=== PATIENT | female | born 1995 | race Caucasian/White ===

== ENCOUNTER → 2018-02-04 13:44 | Outpatient (REF) | payer OTHER, SELFPAY ==
--- NOTE | 2018-02-04 13:00 | PAPFT_PTH ---
PATIENT: Ninoska Stephens LOC: [facility] U#:[id number] AGE/SX: 29/F ROOM: RE02/04/[address]: JIMMY Goncalves : 1995 BED: DIS: SPEC #: [id number] RECD: 02/04/18 17:09 STATUS: BERTHA CARCAMO #: [id number] CHIRSTINA: 02/04/18 13:[address]: Nneka Maldonado DEPT: [facility] Cytology RECD BY: Cindi José ENTERED: 02/04/18 17:10 SP TYPE: PAPFT OTHR DR: Hannah Potter MD, DC Tissues: 1 - CX/ENDOCX FOR PAP SMEARS Procedures: PAP THIN PREP/[facility] Screening HPV DNA PROBE Comments: [id number]
[2018-02-07 15:17] LABS: Chlamydia Result Negative; GC Result Negative
== END ==
LOC: LBN 13:44
PROVIDERS: PCP Family Medicine; Visit Provider Nurse Practitioner Family
DX: R30.0 Dysuria (principal); Z11.3 Encounter for screening for infections with a predominantly sexual mode of transmission; Z12.4 Encounter for screening for malignant neoplasm of cervix
CPT/HCPCS: 87491; 87591; 88142; 87086; 87624

== ENCOUNTER 2018-09-28 14:31 | Outpatient (CLI) | payer OTHER, SELFPAY ==
[2018-09-28 15:20] LABS: HCT 44.3 % (36.0-46.0); HGB 14.8 g/dL (12.0-15.5); Mean Corp. HGB Concentration 33.4 g/dL (32.0-36.0); Mean Corpuscular Hemoglobin 30.2 pg (27.0-33.0); Mean Corpuscular Volume 90.4 fL (80-95); Mean Platelet Volume 10.1 fL (8.0-11.0); Platelet Count 298 x1000/uL (130-400); RBC Distribution Width 13.6 % (11.7-14.6); White Blood Cell Count 8.75 k/cumm (4.4-10.8)
[2018-09-28 16:26] LABS: ALT 24 U/L (12-78); AST 17 U/L (15-37); Albumin 4.2 g/dL (3.4-5.0); Alkaline Phosphatase 76 U/L (46-116); Anion Gap 13.7 mmol/L (3-11); BUN 18 mg/dL (7-18); Bilirubin, Total 0.3 mg/dL (0.2-1.0); CO2 22.3 mmol/L (21.0-32.0); CREATININE 0.99 mg/dL (0.55-1.02); Calcium 9.8 mg/dL (8.5-10.1); Chloride 106 mmol/L (98-107); Cholesterol 144 mg/dL (50-200); Glucose 80 mg/dL (70-100); HDL Cholesterol 66 mg/dL (40-60); LDL CHOLESTEROL 69 mg/dL (<100); Potassium 3.9 mmol/L (3.5-5.1); Sodium 142 mmol/L (136-145); Total Protein 7.8 g/dL (6.4-8.2); Triglyceride 43 mg/dL (30-150)
[2018-10-01 07:32] LABS: Topiramate 8.7 mcg/mL
== END 2018-09-28 14:51 ==
PROVIDERS: PCP Family Medicine; Visit Provider Family Medicine
DX: D64.9 Anemia, unspecified (principal); G43.909 Migraine, unspecified, not intractable, without status migrainosus; Z51.81 Encounter for therapeutic drug level monitoring
CPT/HCPCS: 36415; 80053; 80061; 83721; 85027; 80201

== ENCOUNTER 2019-02-07 14:28 | Outpatient (REF) | payer OTHER, SELFPAY ==
--- NOTE | 2019-02-07 13:30 | PAPFT_PTH ---
PATIENT: Ninoska Stephens LOC: [facility] U#:[id number] AGE/SX: 23/F ROOM: RE02/07/[address]: JIMMY Goncalves : 1995 BED: DIS: 02/07/2019 SPEC #: [id number] RECD: 02/07/19 17:49 STATUS: BERTHA RERadha #: [id number] CHRISTINA: 02/07/19 13:[address]: Nneka Maldonado DEPT: [facility] Cytology RECD BY: Cindi José ENTERED: 02/07/19 17:49 SP TYPE: PAPFT OTHR DR: Hannah Potter MD, DC Tissues: 1 - CX/ENDOCX FOR PAP SMEARS Procedures: PAP THIN PREP/[facility] Screening Comments: [id number]
== END 2019-02-07 14:48 ==
LOC: LBN 14:28
PROVIDERS: PCP Family Medicine; Visit Provider Nurse Practitioner Family
DX: Z12.4 Encounter for screening for malignant neoplasm of cervix (principal)
CPT/HCPCS: 88142

== ENCOUNTER 2019-07-18 14:13 | Outpatient (CLI) | payer OTHER, SELFPAY ==
[2019-07-18 14:46] LABS: HCT 45.6 % (36.0-46.0); HGB 15.3 g/dL (12.0-15.5); Mean Corp. HGB Concentration 33.6 g/dL (32.0-36.0); Mean Corpuscular Hemoglobin 30.4 pg (27.0-33.0); Mean Corpuscular Volume 90.7 fL (80-95); Mean Platelet Volume 9.8 fL (8.0-11.0); Platelet Count 357 x1000/uL (130-400); RBC 5.03 m/cumm (4.00-5.20); RBC Distribution Width 12.7 % (11.7-14.6); White Blood Cell Count 8.51 k/cumm (4.4-10.8)
[2019-07-18 16:09] LABS: ALT 21 U/L (14-59); AST 18 U/L (15-37); Albumin 4.3 g/dL (3.4-5.0); Alkaline Phosphatase 72 U/L (46-116); Anion Gap 9.3 mmol/L (3-11); BUN 17 mg/dL (7-18); Bilirubin, Total 0.3 mg/dL (0.2-1.0); CO2 25.7 mmol/L (21.0-32.0); CREATININE 0.98 mg/dL (0.55-1.02); Calcium 9.6 mg/dL (8.5-10.1); Chloride 107 mmol/L (98-107); Glucose 96 mg/dL (74-106); Magnesium 2.1 mg/dL (1.8-2.4); Potassium 4.1 mmol/L (3.5-5.1); Sodium 142 mmol/L (136-145); TSH (W/Ref FT4) 2.65 uIU/mL (0.36-3.74); Total Protein 7.8 g/dL (6.4-8.2)
== END 2019-07-18 14:33 ==
PROVIDERS: PCP Family Medicine; Visit Provider Family Medicine
DX: G43.709 Chronic migraine without aura, not intractable, without status migrainosus (principal)
CPT/HCPCS: 36415; 80053; 85027; 83735; 84443

== ENCOUNTER 2019-12-05 12:45 | Outpatient (REF) | payer OTHER, SELFPAY ==
[2019-12-06 00:06] LABS: COVID-19 RT-PCR UVMMC Result Negative (Negative)
[2019-12-06 16:50] LABS: Chlamydia Result Negative (Negative); GC Result Negative (Negative)
== END 2019-12-05 13:05 ==
LOC: NCHCN 12:45
PROVIDERS: Obstetrics & Gynecology; PCP Family Medicine; Visit Provider Family Medicine
DX: N89.8 Other specified noninflammatory disorders of vagina (principal); Z11.3 Encounter for screening for infections with a predominantly sexual mode of transmission; Z20.828 Contact with and (suspected) exposure to other viral communicable diseases
CPT/HCPCS: 87491; 87591; U0003; 87480; 87510; 87660

== ENCOUNTER 2020-02-07 17:11 | Emergency (ER) | payer OTHER, SELFPAY ==
[2020-02-07 17:16] VITALS: BP 116/72; PULSE 86; TEMP 36.9; O2SAT 100
--- NOTE | 2020-02-07 18:10 | DI.RAD_ITS ---
EXAM: XR FEMUR RT CLINICAL HISTORY: puncture injury yesterday, pulled .5 inch wood fb. TECHNIQUE: 2D digital imaging was performed. COMPARISON: No exams were available for comparison FINDINGS: BONES: No acute fracture is present. No bony destructive lesion is seen. Visualized portion of knee a nd hip joints are unremarkable. SOFT TISSUE: Normal. No radiopaque foreign body. IMPRESSION: Unremarkable radiographs of the right femur. DATA REPOSITORY: RADIATION DOSE DELIVERED:
--- NOTE | 2020-02-07 18:13 | ED.GENADUL_ITS ---
Discharge Plan Disposition Patient Disposition: HOME Condition: Stable Discharge Details Chief Complaint: RashLesion Clinical Impression: Leg wound, right Primary Care Provider: Hannah Potter ED Provider: John Richards Home Meds and New Rx's Prescriptions: New cephalexin [Keflex] 500 mg capsule 500 mg PO QID 10 Days Qty: 40 RF: 0 Continued biotin 10,000 mcg capsule See Rx Instructions PO DAILY RF: 0 multivitamin [Daily Multi-Vitamin] Tablet 1 tab PO DAILY RF: 0 ferrous fumarate 89 mg (29 mg iron) tablet 89 mg PO DAILY RF: 0 magnesium oxide 500 mg capsule 500 mg PO DAILY RF: 0 prochlorperazine maleate 5 mg tablet 5 mg PO TID PRN (Reason: headache) Qty: 30 RF: 1 Complete [place] 700-1,500 mg-mg capsule 1 cap PO DAILY RF: 0 naproxen sodium 550 MG tablet 550 mg PO BID PRNRF: 0 Mirena 1 EACH intrauterine device 1 ea Intrauterine ONCE Qty: 1 RF: 0 Emgality Pen 120 mg/mL pen injector 120 mg SC QMONTH Qty: 1 RF: 5 topiramate 100 mg tablet 100 mg PO BID Qty: 180 RF: 7 valerian root 500 mg Capsule 500 mg PO QHS PRNRF: 0 Collagen Plus Vitamin C 125-740 mg Capsule 1 cap PO DAILY RF: 0 Discharge Instructions Instructions: Acute Wound Care (ED) Additional Instructions: At this time I see no obvious foreign body. I do appreciate mild local irritat ion but difficult to say that this is a true infection. As we discussed I recommend keeping the area clean and dry, using [id number] topical antibiotics and a wicking salve as directed. Warm moist compresses every 2 hours for 20 minutes. Please watch for new or worsening symptoms and return to the ER for any concerns. I will provide you with a prescription of Keflex, an antibiotic to take if your symptoms worsen at all. Otherwise I recommend contacting your primary care provider tomorrow for prompt outpatient reevaluation. Discharge Data Discharge Date/Time-TO BE ENTERED AT DEPARTURE: 02/07/20 18:26 Medical Decision Making 24-year-old female presents after rubbing up against some ragweed yesterday, noticing a foreign body today and was able to remove it herself. She questions if there may be additional foreign body present. She denies fever, numbness, tingling, weakness. She reports that the discomfort and the redness is already decreasing since she has remove the foreign body. Clinically this appears to be more localized irritation than true cellulitis. I appreciate no obvious foreign body. Discussed options. She is open to obtain x-ray to evaluate for any potential opaque foreign bodies with the understanding that a small subtle foreign body could certainly easily be missed on an x-ray. X-ray unremarkable as read by virtual radiology. Discussed treatment options. She will use [id number] antibiotic ointment, warm soaks and compresses, a wicking salve. I will provide a prescription for Keflex if she develops fever or the erythema begins to spread. She is comfortable this plan and has no additional questions or concerns. Medical Records Medical records reviewed: Yes I reviewed the patient's medical records. HPI General Mode of arrival: ambulatory . Date/Time Provider Initiated Documentation: 02/07/20 17:16 . Limitations to Documentation: no limitations . Information obtained by: patient . HPI Narrative: Patient is a 24-year-old female who reports a history of migraines, presenting to the ER today for right upper leg injury. She reports yesterday she was gardening, brushed up against some ragweed and noticed a small injury. Today the area became progressively red, swollen, painful, so she pulled the scab off and was able to remove a nearly half inch foreign body from her skin. She reports that the area does feel significantly improved with the foreign body removed but she is concerned that there is additional foreign body. She reports that her tetanus status is up-to-date. She denies fever, numbness, tingling, weakness. She has no additional questions or concerns at this time Related Data Home Medications Medication Instructions Recorded Confirmed naproxen sodium 550 mg PO BID PRN 06/12/16 02/07/20 Mirena 1 ea INTRAUTERINE ONCE #1 implant 02/04/18 02/07/20 ferrous fumarate 89 mg (29 mg 89 mg PO DAILY tab 02/07/19 02/07/20 iron) tablet magnesium oxide 500 mg capsule 500 mg PO DAILY 02/07/19 02/07/20 multivitamin 1 tab PO DAILY 02/07/19 02/07/20 biotin 10,000 mcg capsule See Rx Instructions PO DAILY cap 03/21/19 02/07/20 prochlorperazine maleate 5 mg 5 mg PO TID PRN #30 tab 07/25/19 02/07/20 tablet galcanezumab-gnlm 120 mg/mL 120 mg SC QMONTH #1 ml 08/30/19 02/07/20 subcutaneous pen injector topiramate 100 mg tablet 100 mg PO BID #180 tab-cap 10/19/19 02/07/20 omega 3,5,6,7,9 combination no.1 1 cap PO DAILY 12/05/19 02/07/20 700 mg-salmon oil 1,500 mg capsule Collagen Plus Vitamin C 1 cap PO DAILY 02/07/20 02/07/20 cephalexin [Keflex] 500 mg PO QID 10 Days #40 cap 02/07/20 valerian root 500 mg PO QHS PRN 02/07/20 02/07/20 Previous Rx's Medication Instructions Recorded prochlorperazine maleate 5 mg 5 mg PO TID PRN #30 tab 07/25/19 tablet galcanezumab-gnlm 120 mg/mL 120 mg SC QMONTH #1 ml 08/30/19 subcutaneous pen injector topiramate 100 mg tablet 100 mg PO BID #180 tab-cap 10/19/19 cephalexin [Keflex] 500 mg PO QID 10 Days #40 cap 02/07/20 Allergies Allergy/AdvReac Type Severity Reaction Status Date / Time No Known Allergies Allergy Verified 12/05/19 12:52 General Stated Complaint: RashLesion YISEL: 4 Review of Systems Constitutional Constitutional: Denies fever(s) and Denies weakness Musculoskeletal Musculoskeletal: Denies arthralgias, Denies numbness and Denies tingling Integumentary/Breasts Skin/Breast: Reports erythema Neurologic Neurologic: Denies numbness, Denies tingling and Denies weakness [facility] Medical History Acne, unspecified (Resolved 05/12/16) Bacterial vaginosis Encounter for insertion of mirena IUD (Resolved 06/06/15) 06/06/15 IUD surveillance (Chronic 08/26/15) Migraine headache without aura (Acute) Papanicolaou smear of vagina with low grade squamous intraepithelial lesion (LGSIL) (Resolved 10/21/15) Smoker (Chronic 05/08/14) Family History Mother No problems noted. Father No problems noted. Grandfather Essential hypertension Stroke Social History Smoking/Tobacco Use Status: Current every day Tobacco Type: cigarettes Alcohol Intake: current Alcohol Intake frequency: a few times a month Drug use: Never Substance use type: does not use Household members: significant other Housing: house Number of Children: 0 current occupation: [employer] What is your relationship status?: living with partner Panel score (0-1 are the most socially isolated patients): 1 Seatbelt use: never Do you feel safe at home: Yes Do you feel safe in your relationship?: Yes Female Reproductive History Menstrual control method: progestin IUCD History History 0 Para Hx # Term Pregnancies Multiple births Hx # Pregnancies Ectopic pregnancies AB induced Hx Number of Living Children AB spontaneous Exam Const General: cooperative, healthy appearing, comfortable and no acute distress Orientation: alert and awake HENMT Head: normal to inspection, normocephalic and atraumatic Mouth: moist mucous membranes Eyes Conjunctivae: conjunctivae normal Neck Neck: normal visual inspection, trachea midline and supple Resp Effort & Inspection: normal respiratory effort and able to speak in complete sentences Cardio Rate: regular rate Rhythm: regular rhythm Skin General skin exam: no rashes or lesions noted Neuro General: patient alert, patient awake, moves all extremities and no focal motor deficits Gait: normal gait Motor: muscle tone normal throughout Sensory Exam: no sensory deficits noted Extrem Upper/lower leg/hip images: 1. There is a nickel sized area of slightly tender, warm, macular erythema. Centrally there is a small open wound without any obvious foreign body or drainage. Upon palpation I do not appreciate any induration, fluctuance, or foreign body. Neuro, vascular, tendon intact Other: Bilateral lower extremities with multiple abrasions. Psych Appearance: grossly normal Mental Status: mental status grossly normal Course Vital Signs Vital signs: Vital Signs Temperature 36.9 C 02/07/20 17:16 Pulse 86 02/07/20 17:16 Blood Pressure 116/72 02/07/20 17:16 Pulse Oximetry 100 02/07/20 17:16 Temperature 36.9 C 02/07/20 17:16 Temperature Source Temporal Artery Scan 02/07/20 17:16 Pulse 86 02/07/20 17:16 Respiratory Effort Non-Labored 02/07/20 17:20 Blood Pressure 116/72 02/07/20 17:16 Blood Pressure Position Sitting 02/07/20 17:16 Pulse Oximetry 100 02/07/20 17:16 Oxygen Delivery Method Room Air 02/07/20 17:16 Oxygen Flow Rate 0 02/07/20 17:16 Pain Level 1 02/07/20 17:16
--- NOTE | 2020-02-07 18:15 | DI.VRAD_ITS ---
PROCEDURE INFORMATION: Exam: XR Right Femur Exam date and time: 02/07/2020 6:07 PM Age: 24 years old Clinical indication: Other: Puncture injury yesterday pulled .5 inch wood fb TECHNIQUE: Imaging protocol: XR Right femur. Views: 2 views. COMPARISON: No relevant prior studies available. FINDINGS: Bones/joints: Unremarkable. No acute fracture. Soft tissues: Unremarkable. IMPRESSION: No acute findings. Dictated and Authenticated by: Georgia Lewis MD. Ordering:TONEY Lopez MD
== END 2020-02-07 18:26 | disposition home or self-care (01) ==
PROVIDERS: Emergency Provider Physician Assistant; PCP Family Medicine
DX: S70.311A Abrasion, right thigh, initial encounter (principal); W60.XXXA Contact with nonvenomous plant thorns and spines and sharp leaves, initial encounter
CPT/HCPCS: 73552; 99283

== ENCOUNTER 2020-02-22 14:38 | Outpatient (REF) | payer OTHER, SELFPAY ==
--- NOTE | 2020-02-22 14:00 | PAPFT_PTH ---
PATIENT: Ninoska Stephens LOC: [facility] U#:[id number] AGE/SX: 24/F ROOM: RE02/22/[address]: JIMMY Goncalves : 1995 BED: DIS: 02/22/2020 SPEC #: [id number] RECD: 02/22/20 17:59 STATUS: BERTHA RERadha #: [id number] CHRISTINA: 02/22/20 14:[address]: Nneka Maldonado DEPT: [facility] Cytology RECD BY: Cindi José ENTERED: 02/22/20 18:01 SP TYPE: PAPFT OTHR DR: Hannah Potter MD, DC Tissues: 1 - CX/ENDOCX FOR PAP SMEARS Procedures: PAP THIN PREP/[facility] Screening Comments: [id number]
== END 2020-02-22 14:58 ==
LOC: LBN 14:38
PROVIDERS: PCP Family Medicine; Visit Provider Nurse Practitioner Family
DX: Z12.4 Encounter for screening for malignant neoplasm of cervix (principal)
CPT/HCPCS: 88142

== ENCOUNTER 2020-05-07 15:40 | Outpatient (REF) | payer OTHER, SELFPAY ==
[2020-05-11 14:55] LABS: Patient Race White; SARS-CoV-2 RNA Undetected (Undetected); SARS-CoV-2 Specimen Source Nasal
== END 2020-05-07 16:00 ==
LOC: NCHCN 15:40
PROVIDERS: PCP Family Medicine; Visit Provider Nurse Practitioner Family
DX: Z11.59 Encounter for screening for other viral diseases (principal)
CPT/HCPCS: U0003

== ENCOUNTER 2020-10-29 02:17 | Outpatient (CLI) | payer OTHER, SELFPAY ==
[2020-10-29 07:33] LABS: HCT 47.8 % (36.0-46.0); HGB 15.7 g/dL (11.2-15.7); MCH 30.2 pg (27.0-33.0); MCHC 32.8 % (32.0-36.0); MCV 91.9 fL (80-95); Platelet Count 326 10^3/uL (130-400); RDW-SD 41.3 fL; WBC 7.41 10^3/uL (4.4-10.8)
[2020-10-29 08:23] LABS: ALT 24 U/L (14-59); AST 15 U/L (15-37); Albumin 4.5 g/dL (3.4-5.0); Alkaline Phosphatase 94 U/L (46-116); BUN 21 mg/dL (7-18); Bilirubin, Total 0.3 mg/dL (0.2-1.0); CO2 26.6 mmol/L (21.0-32.0); CREATININE 1.2 mg/dL (0.55-1.02); Calcium 9.5 mg/dL (8.5-10.1); Glucose 88 mg/dL (74-106)
[2020-10-29 08:26] LABS: Anion Gap 8.4 mmol/L (3-11); Chloride 106 mmol/L (98-107); Sodium 141 mmol/L (136-145)
[2020-11-02 08:10] LABS: Topiramate 7.9 mcg/mL
== END 2020-10-29 02:18 | disposition home or self-care (01) ==
LOC: LBO 02:18
PROVIDERS: PCP Family Medicine; Visit Provider Family Medicine
DX: G43.009 Migraine without aura, not intractable, without status migrainosus (principal); Z51.81 Encounter for therapeutic drug level monitoring; Z79.899 Other long term (current) drug therapy
CPT/HCPCS: 36415; 80053; 85027; 80201

== ENCOUNTER 2021-11-17 10:54 | Outpatient (REF) | payer OTHER, SELFPAY ==
--- NOTE | 2021-11-17 09:30 | PAPFT_PTH ---
PATIENT: Ninoska Stephens LOC: [facility] U#:[id number] AGE/SX: 26/F ROOM: RE11/17/[address]: JIMMY Goncalves : 1995 BED: DIS: 11/17/2021 SPEC #: [id number] RECD: 11/17/21 13:01 STATUS: BERTHA RERadha #: [id number] CHRISTINA: 11/17/21 09:[address]: Nneka Maldonado DEPT: [facility] Cytology RECD BY: Cindi José ENTERED: 11/17/21 13:02 SP TYPE: PAPFT OTHR DR: Hannah Potter MD, DC Tissues: 1 - CX/ENDOCX FOR PAP SMEARS Procedures: PAP THIN PREP/[facility] Screening Comments: [id number]
[2021-11-18 15:09] LABS: Chlamydia Result Negative (Negative); GC Result Negative (Negative)
== END 2021-11-17 10:55 | disposition home or self-care (01) ==
LOC: LBN 10:54
PROVIDERS: PCP Family Medicine; Visit Provider Nurse Practitioner Family
DX: Z11.3 Encounter for screening for infections with a predominantly sexual mode of transmission (principal); Z12.4 Encounter for screening for malignant neoplasm of cervix
CPT/HCPCS: 87491; 87591; 88142

== ENCOUNTER 2022-03-24 15:21 | Emergency (ER) | payer OTHER, SELFPAY ==
[2022-03-24 15:25] VITALS: BP 120/79; PULSE 103; RESP 18; TEMP 36.6; O2SAT 100
--- NOTE | 2022-03-24 15:45 | DI.US_ITS ---
Exam(s) US ABDOMEN LIMITED EXAM: US ABDOMEN LIMITED CLINICAL HISTORY: RUQ pain + murphys sign TECHNIQUE: Ultrasound abdomen performed using standard protocol. COMPARISON: No exams were available for comparison FINDINGS: PANCREAS: Normal where visualized. LIVER: Normal. Hepatopedal flow in the Portal Vein. The liver measures in 12.6 cm length. GALLBLADDER: No evidence of cholelithiasis. No evidence of wall thickening. No pericholecystic fluid identified. BILIARY SYSTEM: Common bile duct measures < 7 mm. No intrahepatic biliary ductal dilation. PAL'S SIGN: Negative. RIGHT KIDNEY: Kidney is normal in size. No evidence of renal calculi. No evidence of hydronephrosis. No renal mass or cyst identified. ASCITES: None seen. IMPRESSION: 1. Normal sonographic appearance of the upper abdomen. 2. Results of this exam have been verbally communicated with provider. DATA REPOSITORY:
--- NOTE | 2022-03-24 16:02 | ED.GENADUL_ITS ---
Discharge Plan Disposition Patient Disposition: HOME Condition: Improving Discharge Details Clinical Impression: Diarrhea Primary Care Provider: Hannah oPtter ED Provider: Krishna Purvis Home Meds and New Rx's Prescriptions: Continued multivitamin [Daily Multi-Vitamin] Tablet 1 tab PO DAILY escitalopram oxalate 10 mg tablet 10 mg PO DAILY Qty: 90 4RF Complete Cosby 700-1,500 mg-mg capsule 1 cap PO DAILY magnesium oxide 400 mg magnesium tablet 400 mg PO DAILY topiramate 100 mg tablet 100 mg PO BID Qty: 180 3RF prochlorperazine maleate 5 mg tablet 5 mg PO TID PRN (Reason: headache) Qty: 30 1RF Rx Instructions: Take 1-2 tablets every 8 hours as needed for headache naproxen sodium 550 MG tablet 550 mg PO BID PRN Label Comments: 05/26/16- [place] [facility] [place] do not use more than 2x/week. aj Mirena 1 EACH intrauterine device 1 ea Intrauterine ONCE Qty: 1 hydroxyzine HCl 25 mg tablet 25 mg PO TID PRN (Reason: itching) Qty: 90 1RF Emgality Pen 120 mg/mL pen injector 120 mg SC QMONTH Qty: 1 11RF Rx Instructions: as a single dose; administer as two 120 mg injections at separate sites valerian root 500 mg Capsule 500 mg PO QHS PRN Discharge Instructions Instructions: Acute Diarrhea (ED) Additional Instructions: At this time there are no worrisome findings on your laboratory or ultrasound work-up. 1 concern is that your escitalopram may be contributing to your symptoms. Please contact your primary care provider to discuss stopping or holding this medication to see if that improves your symptoms. Otherwise if you develop any blood or mucus in your stools or have any significant worsening of symptoms return to the emergency department immediately. Referrals: Hannah Potter MD, [place] [Primary Care Provider] - 5 days (If not improving) Discharge Data Discharge Date/Time-TO BE ENTERED AT DEPARTURE: 03/24/22 18:16 Medical Decision Making Patient presenting to the emergency department for chief complaint of abdominal pain and diarrhea. Patient reports that this started approximately 8 days ago but 4 days ago stool turned yellow and had increasing right upper quadrant belly pain. Patient denies fever chills, bloody diarrhea, mucus in diarrhea, or travel or other associated symptoms. Physical exam is positive for Shearer sign with significant right upper quadrant tenderness otherwise benign exam. We will plan on checking labs and performing ultrasound imaging with consideration of possible CT if needed. Will give IV fluids pending results and patient was offered ketorolac but refused at this time. Review of labs show a completely unremarkable and normal CBC, CMP shows slightly low potassium at 3.2 glucose of 73 protein of 8.3 otherwise again unremarkable, completely normal urine. Patient is not . Ultrasound imaging is also negative. Reassessed patient and patient now has benign abdominal exam. I suspect enteritis with diarrhea but I am not overly concerned at this time for bacterial infectious source. We will perform outpatient stool specimen studies and hold off on any antibiotics. Did further discuss patient's onset of symptoms and she does state that she did start the citalopram the day before she has noticed a change in the color of her stool and the onset of abdominal pain. Did inform her to reach out to her primary care provider to further discuss stopping this medication as this may be causing her symptoms. After discussion of diagnosis and plan of care patient has no further needs, questions, or concerns and states clear understanding to return to the emergency department for any worsening symptoms. This documentation was generated using [employer] dictation system, please disregard any oddities of phrase or misspellings. Imaging Data Radiologic Study: Attestation: I personally reviewed and interpreted this imaging study as follows: Imaging: Ultrasound Radiologist's impression: FINDINGS: PANCREAS: Normal where visualized. LIVER: Normal. Hepatopedal flow in the Portal Vein. The liver measures in 12.6 cm length. GALLBLADDER: No evidence of cholelithiasis. No evidence of wall thickening. No pericholecystic fluid identified. BILIARY SYSTEM: Common bile duct measures < 7 mm. No intrahepatic biliary ductal dilation. SHEARER'S SIGN: Negative. RIGHT KIDNEY: Kidney is normal in size. No evidence of renal calculi. No evidence of hydronephrosis. No renal mass or cyst identified. ASCITES: None seen. IMPRESSION: 1. Normal sonographic appearance of the upper abdomen. 2. Results of this exam have been verbally communicated with provider. Lab Data Lab results reviewed: Yes I reviewed the patient's lab results. HPI General Mode of arrival: ambulatory . Date/Time Provider Initiated Documentation: 03/24/22 15:34 . Limitations to Documentation: no limitations . Information obtained by: patient and RN notes reviewed . History of Present Illness 26 year old F presents to the emergency department with the chief complaint of RUQ pain and diarrhea, described as mild, with intensity rated at 2. Quality is described as aching, and is localized to the abdomen. Patient reports no radiation. Patient started experiencing this day(s) (8) and it has been constant. No relieving factors improve symptom(s), No exacerbating factors reported . Patient notes no other symptoms.. Patient did receive the following treatments prior to arrival, none Related Data Home Medications Medication Instructions Recorded Confirmed naproxen sodium 550 mg tablet 550 mg PO BID PRN 06/12/16 03/25/22 levonorgestrel 20 mcg/24 hours (7 1 ea intrauterine ONCE #1 implant 02/04/18 03/25/22 yrs) 52 mg intrauterine device (Mirena) multivitamin (Daily Multi-Vitamin 1 tab PO DAILY 02/07/19 03/25/22 tablet) omega 3,5,6,7,9 combination no.1 1 cap PO DAILY 12/05/19 03/25/22 700 mg-salmon oil 1,500 mg capsule (Complete Cosby) valerian root 500 mg capsule 500 mg PO QHS PRN 02/07/20 03/25/22 hydroxyzine HCl 25 mg tablet 25 mg PO TID PRN itching #90 tabs 09/01/21 03/25/22 magnesium oxide 400 mg PO DAILY 10/07/21 03/25/22 galcanezumab-gnlm 120 mg/mL 120 mg subcut QMONTH #1 mL 02/18/22 03/25/22 subcutaneous pen injector (Emgality Pen) prochlorperazine maleate 5 mg 5 mg PO TID PRN headache #30 tabs 02/25/22 03/25/22 tablet topiramate 100 mg tablet 100 mg PO BID #180 tab-caps 02/25/22 03/25/22 escitalopram oxalate 10 mg tablet 10 mg PO DAILY #90 tabs 03/19/22 03/25/22 Previous Rx's Medication Instructions Recorded hydroxyzine HCl 25 mg tablet 25 mg PO TID PRN itching #90 tabs 09/01/21 galcanezumab-gnlm 120 mg/mL 120 mg subcut QMONTH #1 mL 02/18/22 subcutaneous pen injector (Emgality Pen) prochlorperazine maleate 5 mg 5 mg PO TID PRN headache #30 tabs 02/25/22 tablet topiramate 100 mg tablet 100 mg PO BID #180 tab-caps 02/25/22 escitalopram oxalate 10 mg tablet 10 mg PO DAILY #90 tabs 03/19/22 Allergies Allergy/AdvReac Type Severity Reaction Status Date / Time diphenhydramine AdvReac Severe facial Verified 03/25/22 13:52 [From Benadryl] skin rash General Stated Complaint: Nausea/Vomit/Diar YISEL: 3 Review of Systems Constitutional Constitutional: Denies chills, Denies fever(s) and Reports poor appetite Cardiovascular Cardiovascular: Denies chest pain and Denies dyspnea Respiratory Respiratory: Denies cough and Denies dyspnea Gastrointestinal Gastrointestinal: Reports as per HPI, Reports abdominal pain, Denies melena, Denies hematochezia, Denies change in bowel habits, Denies constipation, Reports diarrhea, Reports nausea and Denies vomiting Genitourinary Genitourinary: Denies hematuria, Denies urinary incontinence, Denies urinary hesitancy and Denies urinary urgency Integumentary/Breasts Skin/Breast: Denies rash PFSH All Active Problems Diarrhea (Acute) Palpitations (Acute) Nausea (Acute) Anxiety (Chronic) Cerumen impaction (Acute) Dandruff in adult (Acute) Tinea versicolor (Acute) Annual physical exam (Acute) Leg wound, right (Acute) Routine screening for STI (sexually transmitted infection) (Acute) Vaginal irritation (Acute) Urinary frequency (Acute) Migraine headache without aura (Acute) IUD surveillance (Chronic 08/26/15) Smoker (Chronic 05/08/14) Medical History Acne, unspecified (05/12/16) Bacterial vaginosis Encounter for insertion of mirena IUD (06/06/15) 06/06/15 Papanicolaou smear of vagina with low grade squamous intraepithelial lesion (LGSIL) (10/21/15) Family History Mother Alcohol use disorder Depression Essential hypertension Stroke Substance use disorder Father Alcohol use disorder Hypertension Grandfather Essential hypertension Stroke Sister No problems noted. Brother No problems noted. Paternal Grandfather Alcohol use disorder Asthma Hypertension Stroke Paternal Grandmother Cancer Bladder Diabetes Heart disease Social History Smoking/Tobacco Use Status: Current every day Tobacco Type: cigarettes Tobacco: How many years used: 11 Quit status: considering quitting Smoking risk assessment performed?: Yes Alcohol Intake: current Alcohol Intake frequency: a few times a month Alcohol type: beer, wine and hard liquor Drug use: Never Substance use type: does not use Caregiver/Support person: No Household members: significant other Housing: house Number of Children: 0 Communication Needs: None Do you need help understanding health information?: Never current occupation: [employer] Pets and animals: Yes Pets and animals: cat(s) and dog(s) Sexually active: Yes Do you think of yourself as: straight/heterosexual Current gender identity: female What is your relationship status?: living with partner How often do you talk on the phone with friends or family?: once per week How often do you get together with friends or relatives?: once per week Do you belong to any clubs or organized social groups?: no Panel score (0-1 are the most socially isolated patients): 1 What type of physical activity do you participate in: walking and yoga Duration: 45-60 minutes/day Frequency: 5-6 times per week Christin/Jainism: Other Special christin needs: Yes (Mixed Beliefs) Seatbelt use: never Do you feel safe at home: Yes Do you feel safe in your relationship?: Yes Female Reproductive History Menstrual control method: progestin IUCD History History 0 Para Hx # Term Pregnancies Multiple births Hx # Pregnancies Ectopic pregnancies AB induced Hx Number of Living Children AB spontaneous Exam Const General: cooperative Orientation: alert, awake and oriented x3 Resp Effort & Inspection: normal respiratory effort and able to speak in complete sentences Auscultation: clear to auscultation bilaterally Cardio Rate: regular rate Rhythm: regular rhythm Heart Sounds: S1 normal and S2 normal GI Inspection: normal to inspection Palpation: soft, not firm, no guarding, no masses, no pulsatile masses, not rigid, no splenomegaly and tender in the RUQ and Shearer's sign positive; not at McBurney's point, psoas sign negative and Rovsing's sign negative Auscultation: normal bowel sounds Back/Spine/Pelvis Back: no CVA tenderness Neuro General: patient alert, patient awake, patient oriented x3, gait normal and moves all extremities Course Vital Signs Vital signs: Vital Signs Temperature 36.6 C 03/24/22 15:25 Pulse 103 H 03/24/22 15:25 Respiratory Rate 18 03/24/22 15:25 Blood Pressure 120/79 03/24/22 15:25 Pulse Oximetry 100 03/24/22 15:25 Temperature 36.6 C 03/24/22 15:25 Temperature Source Tympanic 03/24/22 15:25 Pulse 103 H 03/24/22 15:25 Respiratory Rate 18 03/24/22 15:25 Respiratory Effort Non-Labored 03/24/22 15:30 Blood Pressure 120/79 03/24/22 15:25 Blood Pressure Position Sitting 03/24/22 15:25 Pulse Oximetry 100 03/24/22 15:25 Oxygen Delivery Method Room Air 03/24/22 15:25 Oxygen Flow Rate 0 03/24/22 15:25 PAWSS Have you Been Recently Intoxicated or Drunk Within the Last 30 days?: No Have you Ever Experienced Previous Episodes of Alcohol Withdrawal?: No Have you ever Experienced Withdrawal Seizures?: No Have you ever Experienced Delirium Tremens(DT)s?: No Have you ever undergone Alcohol Rehabilitation Treatment (i.e, inpt ot outpatient treatment programs)?: No Have you ever Experienced Blackouts?: No Have you ever Combined Alcohol with any other Substance of Abuse during the last 90 days?: No Positive Blood Alcohol level on Presentation? [PCS.BAL]: No Evidence of Increased Autonomic Activity (i.e. HR>120, tremor, sweating, agitation, nausea)?: No Result: 0
[2022-03-24 16:12] LABS: Bilirubin Negative (Negative); Blood Negative (Negative); Clarity Clear (Clear); Glucose Negative (Negative); Ketones Negative (Negative); Leukocyte Esterase Negative (Negative); Nitrite Negative (Negative); Urobilinogen 0.2 EU/dL (Up TO 0.2)
[2022-03-24 16:16] LABS: Abs Immature Grans 0.03 10^3/uL (0.0-0.06); Absolute Basophil Count 0.13 10^3/uL (0.0-0.2); Absolute Eosinophil Count 0.13 10^3/uL (0.0-0.7); Absolute Lymphocyte Count 2.13 10^3/uL (1.2-3.4); Absolute Neutrophil Count 4.92 10^3/uL (1.2-6.7); Basophils % 1.6; Eosinophils % 1.6; HCT 44.9 % (36.0-46.0); HGB 15.2 g/dL (11.2-15.7); Immature Grans % 0.4; Lymphocytes % 26.8; MCH 29.9 pg (27.0-33.0); MCHC 33.9 % (32.0-36.0); MCV 88 fL (80-95); MPV 10.1 fL (8.0-11.0); Monocytes % 7.6; Platelet Count 308 10^3/uL (130-400); RBC 5.09 10^6/uL (3.93-5.22); RDW 12.2 % (11.7-14.6); WBC 7.94 10^3/uL (4.4-10.8)
[2022-03-24 16:30] LABS: Lipase 99 U/L (73-393); Magnesium 2.1 mg/dL (1.8-2.4)
[2022-03-24 16:33] LABS: ALT 21 U/L (14-59); AST 19 U/L (15-37); Albumin 4.5 g/dL (3.4-5.0); Alkaline Phosphatase 76 U/L (46-116); Anion Gap 8.5 mmol/L (3-11); BUN 14 mg/dL (7-18); Bilirubin, Total 0.4 mg/dL (0.2-1.0); CO2 26.5 mmol/L (21.0-32.0); Calcium 9.3 mg/dL (8.5-10.1); Chloride 105 mmol/L (98-107); Estimated GFR 79.19 (mL/min/1.73m2); Glucose 73 mg/dL (74-106); Potassium 3.2 mmol/L (3.5-5.1); Sodium 140 mmol/L (136-145); Total Protein 8.3 g/dL (6.4-8.2)
[2022-03-24 16:40] VITALS: BP 101/76; PULSE 81; RESP 16; TEMP 36.7; O2SAT 98
[2022-03-24] MEDS: Normal Saline 1,000 ML 1000 ML IV (16:41)
[2022-03-24] MEDS: POTASSIUM CHLORIDE 20 MEQ, POTASSIUM CHLORIDE 10 MEQ 30 MEQ PO (16:46)
[2022-03-24 17:37] VITALS: BP 105/67; PULSE 81; RESP 17; TEMP 36.7; O2SAT 98
[2022-03-25 08:23] LABS: C Diff PCR Negative (Negative)
[2022-03-26 11:10] LABS: Campylobacter PCR Negative (Negative); Salmonella PCR Negative (Negative); Shiga Toxin PCR Negative (Negative); Shigella/Enteroinvasive Ecoli Negative (Negative)
== END 2022-03-24 18:16 | disposition home or self-care (01) ==
PROVIDERS: Emergency Provider Nurse Practitioner Family; PCP Family Medicine
DX: R19.7 Diarrhea, unspecified (principal); R10.11 Right upper quadrant pain; R10.811 Right upper quadrant abdominal tenderness; E87.6 Hypokalemia; F17.210 Nicotine dependence, cigarettes, uncomplicated
CPT/HCPCS: 80053; 81025; 83690; 87329; 87493; 87505; 96361; 96374; 99284; 76705; 81003; 82270; 83630; 83735; 85025

== ENCOUNTER 2022-03-27 02:15 | Outpatient (CLI) | payer OTHER, SELFPAY ==
--- NOTE | 2022-03-26 19:55 | W.ED.FU ---
Follow Up Plan: Stool culture positive for Giardia. I called the patient and she is still having symptoms. Plan to initiate treatment with tinidazole. I called the pharmacy and unfortunately they did not have this in stock. Instead we will initiate treatment with metronidazole. 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 I also spoke with CHRISTIAN Albarran at [facility] who saw the patient yesterday and relayed results and plan to initiate treatment with metronidazole.
[2022-03-27 15:25] LABS: HCT 43.5 % (36.0-46.0); HGB 14.9 g/dL (11.2-15.7); MCH 30.2 pg (27.0-33.0); MCHC 34.3 % (32.0-36.0); MCV 88 fL (80-95); Platelet Count 306 10^3/uL (130-400); RBC 4.93 10^6/uL (3.93-5.22); RDW 12.5 % (11.7-14.6); RDW-SD 40.7 fL; WBC 7.35 10^3/uL (4.4-10.8)
[2022-03-27 16:50] LABS: ALT 21 U/L (14-59); AST 19 U/L (15-37); Albumin 4.1 g/dL (3.4-5.0); Alkaline Phosphatase 76 U/L (46-116); Anion Gap 9.8 mmol/L (3-11); BUN 12 mg/dL (7-18); Bilirubin, Total 0.2 mg/dL (0.2-1.0); CO2 25.2 mmol/L (21.0-32.0); CREATININE 1.1 mg/dL (0.55-1.02); Chloride 105 mmol/L (98-107); Estimated GFR 70.63 (mL/min/1.73m2); Glucose 90 mg/dL (74-106); Lipase 92 U/L (73-393); Potassium 3.2 mmol/L (3.5-5.1); Sodium 140 mmol/L (136-145); TSH (W/Ref FT4) 1.45 uIU/mL (0.36-3.74); Total Protein 7.7 g/dL (6.4-8.2)
== END 2022-03-27 02:16 | disposition home or self-care (01) ==
PROVIDERS: PCP Family Medicine; Visit Provider Family Medicine
DX: F41.9 Anxiety disorder, unspecified (principal); R00.2 Palpitations; R10.11 Right upper quadrant pain
CPT/HCPCS: 80053; 83690; 85027; 84443

== ENCOUNTER 2022-05-15 15:23 | Outpatient (REF) | payer OTHER, SELFPAY ==
[2022-05-17 14:49] LABS: Chlamydia Result Negative (Negative); GC Result Negative (Negative)
== END 2022-05-15 15:24 | disposition home or self-care (01) ==
LOC: LBN 15:23
PROVIDERS: PCP Family Medicine; Visit Provider Obstetrics & Gynecology
DX: Z30.430 Encounter for insertion of intrauterine contraceptive device (principal); Z11.3 Encounter for screening for infections with a predominantly sexual mode of transmission
CPT/HCPCS: 87491; 87591

== ENCOUNTER 2022-10-06 15:46 | Outpatient (REF) | payer BC, SELFPAY ==
[2022-10-08 14:43] LABS: Chlamydia Result Negative (Negative); GC Result Negative (Negative)
== END 2022-10-06 15:47 | disposition home or self-care (01) ==
LOC: LBN 15:46
PROVIDERS: PCP Family Medicine; Visit Provider Obstetrics & Gynecology
DX: Z11.3 Encounter for screening for infections with a predominantly sexual mode of transmission (principal)
CPT/HCPCS: 87491; 87591; 87480; 87510; 87660

== ENCOUNTER 2022-10-09 01:28 | Outpatient (CLI) | payer BC, SELFPAY ==
[2022-10-12 10:11] LABS: Syphilis Serology (RPR) Negative (Negative)
[2022-10-12 12:15] LABS: HIV-1/2 Ag & Ab Screen Negative (Negative)
[2022-10-12 12:23] LABS: Hepatitis C Ab w Rflx HCV PCR Negative (Negative)
== END 2022-10-09 01:29 | disposition home or self-care (01) ==
PROVIDERS: PCP Family Medicine; Visit Provider Obstetrics & Gynecology
DX: Z11.3 Encounter for screening for infections with a predominantly sexual mode of transmission (principal); Z11.4 Encounter for screening for human immunodeficiency virus [HIV]; Z11.59 Encounter for screening for other viral diseases
CPT/HCPCS: 36415; 86803; 87389; 86592

== ENCOUNTER 2023-12-20 03:06 | Outpatient (CLI) | payer OTHER, SELFPAY ==
[2023-12-20 15:04] LABS: TSH (W/Ref FT4) 2.99 uIU/mL (0.36-3.74)
== END 2023-12-20 03:07 | disposition home or self-care (01) ==
PROVIDERS: PCP Family Medicine; Visit Provider Nurse Practitioner Women's Health
DX: R63.5 Abnormal weight gain (principal)
CPT/HCPCS: 36415; 84443

== ENCOUNTER 2024-01-05 10:16 | Emergency (ER) | payer OTHER, SELFPAY ==
[2024-01-05 10:32] VITALS: BP 134/83; PULSE 105; RESP 16; TEMP 36.9; O2SAT 98
[2024-01-05] MEDS: Acetaminophen 325 MG TAB 650 MG PO (11:02)
[2024-01-05] MEDS: Ketorolac 15 MG/ML VIAL IM (11:02)
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
[2024-01-05 13:24] VITALS: BP 134/83; PULSE 105; RESP 16; TEMP 36.9; O2SAT 98
== END 2024-01-05 13:29 | disposition home or self-care (01) ==
PROVIDERS: Emergency Provider Emergency Medicine; PCP Family Medicine
DX: S92.315A Nondisplaced fracture of first metatarsal bone, left foot, initial encounter for closed fracture (principal); S92.335A Nondisplaced fracture of third metatarsal bone, left foot, initial encounter for closed fracture; S92.345A Nondisplaced fracture of fourth metatarsal bone, left foot, initial encounter for closed fracture; V86.56XA Driver of dirt bike or motor/cross bike injured in nontraffic accident, initial encounter
CPT/HCPCS: 99283; 73590; 73610; 73630; J1885

== ENCOUNTER 2024-03-29 14:40 | Outpatient (CLI) | payer OTHER, SELFPAY ==
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
== END 2024-03-29 14:41 | disposition home or self-care (01) ==
LOC: DIORS 15:10
PROVIDERS: PCP Family Medicine; Visit Provider Student in an Organized Health Care Education/Training Program
DX: S92.315A Nondisplaced fracture of first metatarsal bone, left foot, initial encounter for closed fracture (principal); X58.XXXA Exposure to other specified factors, initial encounter
CPT/HCPCS: 73630

== ENCOUNTER 2024-05-24 15:17 | Outpatient (CLI) | payer OTHER, SELFPAY ==
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
== END 2024-05-24 15:18 | disposition home or self-care (01) ==
LOC: DIORS 15:18
PROVIDERS: PCP Family Medicine; Visit Provider Student in an Organized Health Care Education/Training Program
DX: S92.315D Nondisplaced fracture of first metatarsal bone, left foot, subsequent encounter for fracture with routine healing (principal); X58.XXXD Exposure to other specified factors, subsequent encounter
CPT/HCPCS: 73630

== ENCOUNTER 2024-06-08 11:40 | Day surgery (SDC) | payer OTHER, SELFPAY ==
[2024-06-08] VITALS (16 sets, daily range): BP systolic 95–125; BP diastolic 37–72; PULSE 68–88; RESP 14–18; TEMP 36.2–36.7; O2SAT 99–100; BMI 27.5
--- NOTE | 2024-06-08 11:52 | PDOC.DSDIS_ITS ---
Date of service: 06/08/24 Discharge Plan Disposition Patient Disposition: Home Condition: Stable Discharge Details Attending Provider: Nando Fletcher Primary Care Provider: Hannah Potter Home Meds and New Rx's Prescriptions: New naproxen 250 mg tablet 250 - 500 mg PO BID PRN (Reason: Moderate pain) Qty: 30 0RF oxycodone 5 mg tablet 5 - 10 mg PO Q4H PRN (Reason: Moderate to severe pain) Qty: 10 0RF Continued multivitamin [Daily Multi-Vitamin] Tablet 1 tab PO DAILY escitalopram oxalate 10 mg tablet 5 mg PO DAILY Qty: 90 4RF Ubrelvy 100 mg tablet 100 mg PO ONCE Qty: 14 3RF Rx Instructions: as a single dose; may repeat once in >=2 hours after first dose if needed prochlorperazine maleate 5 mg tablet 5 mg PO TID PRN (Reason: headache) Qty: 30 3RF Rx Instructions: Take 1-2 tablets every 8 hours as needed for headache calcium carbonate [Calcium 600] 600 mg calcium (1,500 mg) tablet 600 mg PO DAILY cholecalciferol (vitamin D3) 50 mcg (2,000 unit) capsule 50 mcg PO DAILY Complete [place] 700-1,500 mg-mg capsule 1 cap PO DAILY magnesium oxide 400 mg magnesium tablet 400 mg PO DAILY Patient Comments: takes every other day so as to avoid diarrhea Kelp (iodine) 150 mcg tablet 150 mcg PO DAILY Patient Comments: 05/15/22- pt states takes 325 mcg of sea kelp daily naproxen sodium 550 MG tablet 550 mg PO BID PRN Patient Comments: 05/26/16- Per [facility] [place] [facility]- do not use more than 2x/week. aj Mirena 1 EACH intrauterine device 1 ea Intrauterine ONCE Qty: 1 Aimovig Autoinjector 140 mg/mL auto-injector 140 mg subcut QMONTH Qty: 1 11RF topiramate 100 mg tablet 100 mg PO BID Qty: 180 3RF Discharge Instructions Additional Instructions: Surgery: Left foot removal of hardware (status post first and second tarsal metatarsal joint ORIF) Activity: Weightbearing as tolerated. Use short walker boot for protection especially at work or out of the home for a few weeks. A supportive work or snow boot may be used instead. Encourage elevation to minimize swelling discomfort. Wiggle toes to prevent stiffness. Avoid any vigorous weightbearing activities for about 4-6 weeks. Prescriptions: Naproxen 250 mg take 1-2 every 12 hours with a meal as needed for moderate pain Oxycodone 5 mg take 1-2 every 4-6 hours as needed for severe pain You may use [id number]-[id number] Tylenol (acetaminophen) as needed for mild pain. These pain medications may be taken all at once or in different combinations as needed. Also, recommend Colace (docusate) as a stool softener as surgery and pain medicine cause constipation. You may try rqnd-vlr-xylooca diphenhydramine (Benadryl) 25-50 mg nightly as a sl eep aid Dressings: You may loosen/adjust Velcro Nicolas bandage as needed for comfort. Leave dressing in place for 5 days. May then remove gauze and Xeroform, but keep Steri-Strips on until they start to fall off about 1-2 weeks. You may cover the incisions with wide Band-Aid. May shower after 7 days. Follow-up: 10-14 days with an orthopedic physician information technology assistant and 6-8 weeks daily or with Dr. Fletcher if needed. You may take off the leg compression stockings this evening at home. You may also leave them on a few days longer if you have a history of leg swelling or edema. Let us know right away if you develop any redness, drainage, fevers, chest pain, or trouble breathing. Do not drink alcohol or drive for at least 24 hours after anesthesia. Please call the office during business hours with any questions or concerns. You could also let Dr. Fletcher know if you have any questions or concerns at his cell phone [phone]. Discharge Orders Discharge Orders: Discharge Order (Routine); Ordered 06/08/24 Ordered By: Nando Fletcher DS: Diagnosis Discharge Diagnosis (1) Presence of retained hardware: Status: Acute (2) Fracture of metatarsal of left foot, closed: Status: Acute
--- NOTE | 2024-06-08 11:52 | W.PM.OP ---
Operative Note Operative Note PRE-OP DIAGNOSIS: Left foot retained hardware status post first and second tarsometatarsal joint ORIF POST-OP DIAGNOSIS: same PROCEDURE: 1. Removal of deep hardware, CPT #39973: First TMT joint plate and screws 2. Removal of deep hardware, CPT #23470: Second TMT joint plate and screws SURGEON: Nando Fletcher NEWS OPERATIONS MANAGER: John Richards ANESTHESIA TYPE: Local By Surgeon and General LMA/ETT Refer to Anesthesia Record ESTIMATED BLOOD LOSS: 5 TOURNIQUET TIME: 0 COMPLICATIONS: None Patient was transported to: PACU Patient's condition: stable Indications: Please see complete medical record for details. Findings: Good bony healing and alignment of the first and second tarsometatarsal joints. Both [place] Variax 2.7mm plates and all screws removed without difficulty. Procedure Description: In the operating room, general anesthesia was induced. The patient was positioned supine on the operating room table. All bony prominences were well-padded. Preoperative antibiotics were administered. The left foot was prepped and draped in the usual sterile fashion. The correct patient, procedure, and side of the procedure were all verified prior to incision. The prior longitudinal incision and surgical site was thoroughly injected with 25 cc of 0.25% bupivacaine containing epinephrine. The mid to proximal portion of the previous incision was opened sharply, healing scar tissue spread to the sides retracting tendon neurovascular structures laterally to expose healed tissue over the first TMT joint plate and screws, which was exposed sharply directly over the hardware. The plate margins were defined with elevators and then the screws were all removed with the T8 screwdriver without difficulty. The plate was readily elevated from the bone and removed in entirety. The remaining screw outside of the plate was localized fluoroscopically as it was countersunk and buried in the bone, but the small screw head was able to be exposed with rongeur and dental pick and then it was removed in entirety as well. Using the same skin incision, the great toe extensor tendon and and adjacent nerve and vein in scar tissue was retracted medially exposing the dorsal second TMT area with the plate again covered by healing scar tissue and periosteum, which was elevated sharply from the hardware and then with elevators around the plate margins. Screws were removed followed by the plate without issue. Fluoroscopic images confirmed complete removal, fractures healed and stable, first and second TMT joints looked appropriate with good cartilage appearance from this limited dorsal exposure. Wounds were copiously irrigated. The dorsal margin of the bones avoiding the joints was then smoothed with a rasp. Hemostasis appropriate. Copiously irrigated again. Subcutaneous tissue closed using 3-0 Monocryl buried erupted followed by 3-0 Monocryl subcuticular running. Mastisol applied about the incision followed by Steri-Strips, Xeroform, 4 x 4 gauze, and gentle Nicolas bandage compression. The patient awoke from anesthesia without complication and was transferred to the recovery room in a stable condition. Date of Procedure: 06/08/24
--- NOTE | 2024-06-08 13:08 | W.ANESPRE ---
General Info Date of Service Date Performed: 06/08/24 Height: 5 ft 2 in Weight: 68.2 kg Body Mass Index (BMI): 27.5 Surgical Procedure: Operation Date: 06/08/24 14:40 Proposed Procedure Side Surgeon p Hardware Removal Foot Left Nando Fletcher MD Meds Allergies and Home Medications Allergies Allergy/AdvReac Type Severity Reaction Status Date / Time diphenhydramine (From AdvReac Severe facial Verified 06/08/24 12:16 Benadryl) skin rash Home Medication ?Medication ?Instructions ?Recorded naproxen sodium 550 mg tablet 550 mg PO BID PRN 06/12/16 levonorgestrel 21 mcg/24 hr (up to 1 ea intrauterine ONCE #1 implant 02/04/18 8 years) 52 mg intrauterine device (Mirena) multivitamin (Daily Multi-Vitamin 1 tab PO DAILY 02/07/19 tablet) omega 3,5,6,7,9 combination no.1 1 cap PO DAILY 12/05/19 700 mg-salmon oil 1,500 mg capsule (Complete [place]) iodine 150 mcg tablet (Kelp 150 mcg PO DAILY 05/15/22 (iodine)) magnesium oxide 400 mg PO DAILY 10/01/22 prochlorperazine maleate 5 mg 5 mg PO TID PRN headache #30 tabs 10/13/23 tablet ubrogepant 100 mg tablet (Ubrelvy) 100 mg PO ONCE #14 tabs 10/13/23 erenumab-aooe 140 mg/mL 140 mg subcut QMONTH #1 mL 12/21/23 subcutaneous auto-injector (Aimovig Autoinjector) escitalopram oxalate 10 mg tablet 5 mg (1/2 x 10 mg) PO DAILY #90 01/18/24 tabs topiramate 100 mg tablet 100 mg PO BID #180 tab-caps 03/22/24 calcium carbonate (Calcium 600) 600 mg PO DAILY 03/29/24 cholecalciferol (vitamin D3) 50 50 mcg PO DAILY 03/29/24 mcg (2,000 unit) capsule naproxen 250 mg tablet 250 - 500 mg (1 - 2 x 250 mg) PO 06/08/24 BID PRN Moderate pain #30 tabs oxycodone 5 mg tablet 5 - 10 mg (1 - 2 x 5 mg) PO Q4H 06/08/24 PRN Moderate to severe pain #10 tabs Current Visit Medications: Current Medications Generic Name Dose Route Start Last Admin Trade Name Freelsa PRN Reason Stop Dose Admin Acetaminophen 1,000 mg 06/08/24 11:51 Acetaminophen 500 Mg Tab PO 07/08/24 11:50 Q6H PRN PRN Cefazolin Sodium/Dextrose 2 gm in 50 mls @ 100 mls/hr 06/08/24 06:00 Ancef Duplex IVPB 07/07/24 23:59 PREOP ARIAN Sodium Chloride 500 mls @ 30 mls/hr 06/08/24 12:00 Saline 500ml Bag IV 07/08/24 11:59 INFUSION ARIAN IV Miscellaneous Supplies 1 each 06/08/24 06:00 Iv Access IV 07/07/24 23:59 DIRECTED ARIAN Naproxen 250 - 500 mg 06/08/24 11:51 Naproxen 500 Mg Tab PO 07/08/24 11:50 BID PRN PRN Oxycodone HCl 5 - 10 mg 06/08/24 11:51 Oxycodone 5 Mg Tab PO 07/08/24 11:50 Q4H PRN PRN Sodium Chloride 0 ml 06/08/24 06:00 Normal Saline Flush 10 Ml Syr IV 07/07/24 23:59 PRN PRN Sodium Chloride 0 ml 06/08/24 06:00 Normal Saline 10 Ml Vial IJ 07/07/24 23:59 DIRECTED PRN Sterile Water 0 ml 06/08/24 06:00 Water,Injection,Sterile 10 Ml Vial IJ 07/07/24 23:59 DIRECTED PRN PFSH Active Problems Active Problems: Problem Status Onset Code Presence of retained hardware Acute Z96.9 Immunization due Acute Z23 Fracture of metatarsal of left foot, closed Acute 01/05/24 S92.302A Anxiety Chronic F41.9 Dandruff in adult Acute L21.0 Tinea versicolor Acute B36.0 IUD surveillance Chronic 08/26/15 Z30.431 Smoker Chronic 05/08/14 F17.200 Medical History Medical History (Updated 06/08/24 @ 12:30 by Kaylee Melendez) Hx of migraine headaches Annual physical exam Acne, unspecified (05/12/16) Encounter for insertion of mirena IUD (06/06/15) 06/06/15 Papanicolaou smear of vagina with low grade squamous intraepithelial lesion (LGSIL) (10/21/15) Bacterial vaginosis Medical History Comments:: Pt. reports when ORIF of L , had a hard time coming out of anesthesia and N/V Surgical History Surgical History (Updated 06/08/24 @ 12:23 by Kaylee Melendez) S/P ORIF (open reduction internal fixation) fracture L foot Hx of wisdom tooth extraction Tobacco Smoking/Tobacco Use Status: Current every day Tobacco Type: cigarettes Smoking cigarettes per day: 3 Passive smoking exposure: Yes Alcohol Alcohol Intake: current Alcohol intake frequency: a few times a month Alcohol type: beer, wine and hard liquor Substance Use Substance use: Never Substance use type: does not use Details: alcohol: t-4, couple sips Prental History History 0 Para Hx # Term Pregnancies Multiple births Hx # Pregnancies Ectopic pregnancies AB induced Hx Number of Living Children AB spontaneous Vital Signs and Lab Results Vital Signs Most Recent Vital Signs in EMR: Most Recent Vital Signs Temp Pulse Resp BP Pulse Ox 36.7 C 73 16 100/65 100 06/08/24 12:31 06/08/24 12:31 06/08/24 12:31 06/08/24 12:31 06/08/24 12:31 Lab Results Blood Type / Crossmatch: No Data to Display Complete Blood Count: No Data to Display Complete Metabolic Panel: No Data to Display Liver Function Panel: No Data to Display Coagulation Panel: No Data to Display Cardiac Panel: No Data to Display Arterial Blood Gas: No Data to Display Venous Blood Gas: No Data to Display Pancreas Panel: No Data to Display Thyroid Panel: No Data to Display Infectious Disease: No Data to Display Blood Cultures: No Data to Display Toxicology Panel: No Data to Display Panel: No Data to Display Anesthesia Assessment and Plan Anesthesia History Personal History: No History of Anesthesia Complications and Other Family History: No Family History of Anesthesia Complications Exercise Tolerance Exercise Tolerance: Metabolic Equivalents>4 Cardiac & Pulmonary Exam Cardiac Exam: Normal S1/S2 Heart Sounds Pulmonary Exam: Clear Bilateral Breath Sounds Implantable Cardiac Device Does patient have a Pacemaker or an ICD?: No Airway Exam Known Difficult Airway: No Mallampati Class: 2 Mouth Opening: Normal (> 3cm) Thyromental Distance: Greater than 3 cm Neck Range of Motion: Full ROM Neck Circumference: Normal Teeth Condition: Normal Dentition ASA Classification ASA Score: ASA 2 Emergency Case?: No NPO Status NPO Status: NPO Clears >2 hours, Solids >8 hours Status Status: Negative HCG Anesthesia Plan Resuscitation Status: Full Code Anesthesia Technique: General Anesthesia Airway Planned: Endotracheal Tube Monitors Used: Standard Monitors Preoperative Comments:: 28 yo female for hardware removal. Sig PMHx: anxiety, smoker, migraines, occ EtOH. Previous Anes: -NLH/ORIF, LMA 4, sevo/jagdeep, hydromorphone, slow wake up, nausea.
[2024-06-08] MEDS: Normal Saline 500 ML 30 ML IV (13:30)
[2024-06-08] MEDS: ceFAZolin 2 GM/50 ML BAG IVPB (14:03)
[2024-06-08] MEDS: Bupivacaine 0.25% Pres-Free W/EPI 30 ML VIAL (14:34)
--- NOTE | 2024-06-08 15:20 | DI.RAD_ITS ---
Exam(s) XR FOOT LT LIMITED EXAM: XR FOOT LT LIMITED CLINICAL HISTORY: Fracture of metatarsal of left foot. TECHNIQUE: 2D and realtime digital imaging was performed. COMPARISON: CR XR FOOT LT COMPLETE from 05/24/2024 FINDINGS: A hard copy image shows removal of the previously noted dorsal fusion plates at the 1st and 2nd tarsa l metatarsal joints. Please see procedure note for details. Fluoro time: 11.4seconds RADIATION DOSE DELIVERED: ree Easley=0.32 mGy
--- NOTE | 2024-06-08 15:43 | W.ANESPOSTOP ---
Postoperative Evaluation Date, Time and Location Date Performed: 06/08/24 Time Performed: 15:43 Patient Location: PACU Vital Signs Most Recent Imported Vital Signs: Most Recent Vital Signs Temp Pulse Resp BP Pulse Ox 36.5 C 77 17 95/37 L 100 06/08/24 15:29 06/08/24 15:28 06/08/24 15:30 06/08/24 15:28 06/08/24 15:30 Pain Score Most Recent Pain Score: Most Recent Pain Score Pain Level 3 06/08/24 15:34 Assessment Mental Status: Awake (Alert & Oriented to Patient Baseline) Airway and Respiratory Function: Patent airway with normal (patient baseline) respiratory exam Cardiovascular Function: Hemodynamically Stable Hydration Status: Adequately Hydrated Nausea & Vomiting: No Nausea or Vomiting Pain: Pain is tolerable per patient Peripheral Nerve Block: Patient did not receive a nerve block
--- NOTE | 2024-06-08 15:44 | W.ANESPOSTOP ---
Postoperative Evaluation Date, Time and Location Date Performed: 06/08/24 Time Performed: 15:44 Patient Location: PACU Vital Signs Most Recent Imported Vital Signs: Most Recent Vital Signs Temp Pulse Resp BP Pulse Ox 36.5 C 68 16 118/62 100 06/08/24 15:29 06/08/24 15:41 06/08/24 15:41 06/08/24 15:41 06/08/24 15:41 Most Recent Vital Signs Temp Pulse Resp BP Pulse Ox 36.5 C 77 17 95/37 L 100 06/08/24 15:29 06/08/24 15:28 06/08/24 15:30 06/08/24 15:28 06/08/24 15:30 Pain Score Most Recent Pain Score: Most Recent Pain Score Pain Level 3 06/08/24 15:34 Assessment Mental Status: Awake (Alert & Oriented to Patient Baseline) Airway and Respiratory Function: Patent airway with normal (patient baseline) respiratory exam Cardiovascular Function: Hemodynamically Stable Hydration Status: Adequately Hydrated Nausea & Vomiting: No Nausea or Vomiting Pain: Pain is tolerable per patient Peripheral Nerve Block: Patient did not receive a nerve block
== END 2024-06-08 16:52 | disposition home or self-care (01) ==
PROVIDERS: PCP Family Medicine; Visit Provider Student in an Organized Health Care Education/Training Program
PROC: (CPT 20680; principal; 2024-06-08 14:30)
DX: Z96.89 Presence of other specified functional implants (principal); X58.XXXA Exposure to other specified factors, initial encounter; S92.325A Nondisplaced fracture of second metatarsal bone, left foot, initial encounter for closed fracture; S92.315A Nondisplaced fracture of first metatarsal bone, left foot, initial encounter for closed fracture
CPT/HCPCS: 20680 ×2; 76000; 81025; 73620; J0131; J0690; J1100; J1805; J2405; J2704

== ENCOUNTER 2024-07-20 03:50 | Outpatient (CLI) | payer OTHER, SELFPAY ==
[2024-07-20 16:08] LABS: Hemoglobin A1C 4.8 % (<5.7)
[2024-07-20 16:16] LABS: ALT 18 U/L (14-59); AST 20 U/L (15-37); Alkaline Phosphatase 74 U/L (46-116); Anion Gap 9.2 mmol/L (3-11); BUN 21 mg/dL (7-18); Bilirubin, Total 0.37 mg/dL (0.2-1.0); CO2 24.8 mmol/L (21.0-32.0); CREATININE 1.2 mg/dL (0.55-1.02); Calcium 9.3 mg/dL (8.5-10.1); Calculated LDL 85 mg/dL (<100); Chloride 107 mmol/L (98-107); Cholesterol 157 mg/dL (<200); Estimated GFR 62.84 (mL/min/1.73m2); Glucose 79 mg/dL (74-106); HDL Cholesterol 66 mg/dL (40-60); Potassium 3.7 mmol/L (3.5-5.1); Sodium 141 mmol/L (136-145); TSH (W/Ref FT4) 1.77 uIU/mL (0.36-3.74); Total Protein 7.5 g/dL (6.4-8.2); Triglyceride 31 mg/dL (<150)
[2024-07-21 19:03] LABS: Prolactin 7.7 ng/mL (See Note)
[2024-07-25 17:51] LABS: 17-Hydroxyprogesterone <40 ng/dL
== END 2024-07-20 03:51 | disposition home or self-care (01) ==
PROVIDERS: PCP Family Medicine; Visit Provider Family Medicine
DX: E03.9 Hypothyroidism, unspecified (principal); E28.2 Polycystic ovarian syndrome; I10 Essential (primary) hypertension; E11.9 Type 2 diabetes mellitus without complications
CPT/HCPCS: 36415; 80053; 80061; 83498; 83036; 84146; 84443

== ENCOUNTER 2024-12-28 13:16 | Outpatient (RCR) | payer OTHER, SELFPAY ==
[2025-01-01 10:22] LABS: TB Interpretation Negative (Negative); TB1 Ag minus Nil 0.02 IU/mL; TB2 Ag minus Nil 0.01 IU/mL
== END 2025-01-25 23:59 | disposition home or self-care (01) ==
LOC: INF 13:16
PROVIDERS: PCP Family Medicine; Visit Provider Family Medicine
DX: Z11.1 Encounter for screening for respiratory tuberculosis (principal)
CPT/HCPCS: 36415; 86480

== ENCOUNTER 2025-01-30 15:52 | Outpatient (REF) | payer OTHER, SELFPAY ==
--- NOTE | 2025-01-30 15:40 | PAPFT_PTH ---
PATIENT: Ninoska Stephens LOC: [facility] U#:[id number] AGE/SX: 29/F ROOM: RE01/30/[address]: Cintia Mckeon NP : [id number] BED: DIS: 01/30/2025 SPEC #: [id number] RECD: 01/30/25 18:29 STATUS: BERTHA REQ #: [id number] CHRISTINA: 01/30/25 15:[address]: Mike VINSON,Cintia DEPT: [facility] Cytology RECD BY: Cindi José ENTERED: 01/30/25 18:29 SP TYPE: PAPFT OTHR DR: Hannah Potter MD, DC Tissues: 1 - CX/ENDOCX FOR PAP SMEARS Procedures: PAP THIN PREP/[facility] Screening HPV DNA PROBE Comments: [id number] (HPV 16 & 18/45)
== END 2025-01-30 15:53 | disposition home or self-care (01) ==
LOC: LBN 15:52
PROVIDERS: PCP Family Medicine; Visit Provider Nurse Practitioner Women's Health
DX: Z12.4 Encounter for screening for malignant neoplasm of cervix (principal)
CPT/HCPCS: 88142; 87624

== ENCOUNTER 2025-03-07 14:33 | Outpatient (RCR) | payer OTHER, SELFPAY | END 2025-03-27 23:59 | disposition home or self-care (01) | LOC: INF 14:33 | PROVIDERS: PCP Family Medicine; Visit Provider Family Medicine | DX: R10.9 Unspecified abdominal pain (principal) | CPT/HCPCS: 36415 ==

== ENCOUNTER 2025-03-07 15:10 | Outpatient (REF) | payer OTHER, SELFPAY ==
[2025-03-07 14:57] LABS: Abs Immature Grans 0.03 10^3/uL (0.0-0.06); HCT 43.3 % (36.0-46.0); HGB 14.5 g/dL (11.2-15.7); Immature Grans % 0.3 %; MCH 29.8 pg (27.0-33.0); MCHC 33.5 % (32.0-36.0); MCV 89 fL (80-95); MPV 10.1 fL (8.0-11.0); Platelet Count 348 10^3/uL (130-400); RBC 4.87 10^6/uL (3.93-5.22); RDW 13.2 % (11.7-14.6); RDW-SD 43.1 fL; WBC 9.43 10^3/uL (4.4-10.8)
[2025-03-07 15:00] LABS: ESR 8 mm/hr (0-20)
[2025-03-07 15:17] LABS: ALT 23 U/L (14-59); AST 20 U/L (15-37); Albumin 4.3 g/dL (3.4-5.0); Alkaline Phosphatase 72 U/L (46-116); Anion Gap 8.9 mmol/L (3-11); BUN 18 mg/dL (7-18); Bilirubin, Total 0.4 mg/dL (0.2-1.0); C-Reactive Protein < 0.50 mg/dL (<or=0.5); CO2 27.1 mmol/L (21.0-32.0); Calcium 9.6 mg/dL (8.5-10.1); Chloride 107 mmol/L (98-107); Estimated GFR 77.72 (mL/min/1.73m2); Glucose 77 mg/dL (74-106); Potassium 3.5 mmol/L (3.5-5.1); Sodium 143 mmol/L (136-145); Total Protein 8.1 g/dL (6.4-8.2)
[2025-03-08 01:46] LABS: Campylobacter PCR Negative (Negative); Shiga Toxin PCR Negative (Negative); Shigella/Enteroinvasive Ecoli Negative (Negative)
[2025-03-08 10:13] LABS: Lyme Ab w Rflx to Lyme Confirm Negative (Negative)
[2025-03-08 10:27] LABS: HBs Antibody, Qual Negative (See Note); HBs Antibody, Quant <3.1 mIU/mL (See Note); Hepatitis C Ab w Rflx HCV PCR Negative (Negative)
[2025-03-09 20:52] LABS: B. miyamotoi PCR Negative (Negative); Babesia divergens/MO-1 Negative (Negative); Ehrlichia muris eauclairensis Negative (Negative)
== END 2025-03-07 15:11 | disposition home or self-care (01) ==
LOC: LBN 15:10
PROVIDERS: Family Medicine; PCP Family Medicine; Visit Provider Family Medicine
DX: R10.9 Unspecified abdominal pain (principal); R19.7 Diarrhea, unspecified; R19.5 Other fecal abnormalities
CPT/HCPCS: 80053; 85652; 86704; 86706; 86803; 87015; 87269; 87272; 87340; 87505; 87798; 85025; 86140; 86618